=== PATIENT | female | born 1955 | race Caucasian/White ===

== ENCOUNTER → 2017-04-25 | Outpatient (CLI) | payer BC ==
[~2017-04-25] MED LIST: B-COCAP2 PO; CHOLTAB3 PO; COEN1CAP37 PO; FLUO40CA8 PO; MAGN400T6 PO; MULT-506 PO; OMEG120013 PO; SIMV20TA2 PO
--- NOTE | 2017-04-25 12:21 | DIAGNOSTIC IMAGING REPORT ---
EXAMINATION: RENAL ULTRASOUND CLINICAL HISTORY: ELEVATED PARATHYROID HORMONE E34.9 COMPARISON STUDY: None FINDINGS: The right kidney measures 9.1 cm. The left kidney measures 9.2 cm. There is no evidence of hydronephrosis. There are no renal masses. There is mild bilateral renal cortical thinning. There are no shadowing foci suspicious for calculi. No bladder abnormalities are visualized. Bilateral ureteral jets were visualized. IMPRESSION : No renal masses identified. No evidence of hydronephrosis. Electronically signed by: Theo Wyman M.D. 04/25/2017 12:20 PM Dictated Date/Time: 04/25/2017 12:19 PM
== END | disposition home or self-care (01) ==
LOC: C.ULTR 11:53
PROVIDERS: ATTEND Internal Medicine Endocrinology, Diabetes & Metabolism
DX: E34.9 Endocrine disorder, unspecified (principal)

== ENCOUNTER → 2017-05-01 | Outpatient (CLI) | payer BC ==
[2017-05-01 13:06] LABS: CALCIUM URINE < 5.0 mg/dl; URINE COLLECTION TIME 24 HOURS; URINE SODIUM 24 HR 80 mmol/24 (40-220)
== END | disposition home or self-care (01) ==
LOC: C.LABPBG 07:44
PROVIDERS: ATTEND Internal Medicine Endocrinology, Diabetes & Metabolism
DX: E34.9 Endocrine disorder, unspecified (principal)

== ENCOUNTER → 2017-05-09 | Outpatient (CLI) | payer BC ==
[2017-05-09 13:41] LABS: ALT/SGPT 31 U/L (12-78); AST/SGOT 19 U/L (15-37); BLOOD UREA NITROGEN 15 mg/dl (7-18); BUN/CREATININE RATIO 15.1 (10-20); CALCIUM 9.7 mg/dl (8.5-10.1); CARBON DIOXIDE 26 mmol/L (21-32); CHLORIDE 108 mmol/L (98-107); GLUCOSE 77 mg/dl (70-99); POTASSIUM 3.9 mmol/L (3.5-5.1); SODIUM 143 mmol/L (136-145)
[2017-05-09 13:43] LABS: ALB/GLOB RATIO 1.2 (0.9-2); ALKALINE PHOSPHATASE 76 U/L (45-117); PHOSPHORUS 1.8 mg/dl (2.5-4.9)
== END | disposition home or self-care (01) ==
LOC: C.LABPBG 07:13
PROVIDERS: ATTEND Internal Medicine Endocrinology, Diabetes & Metabolism
DX: E34.9 Endocrine disorder, unspecified (principal)

== ENCOUNTER → 2017-05-15 | Outpatient (CLI) | payer BC | END | disposition home or self-care (01) | LOC: C.MAMM 07:40 | PROVIDERS: ATTEND Internal Medicine Endocrinology, Diabetes & Metabolism | DX: E34.9 Endocrine disorder, unspecified (principal) ==

== ENCOUNTER → 2017-05-19 | Outpatient (CLI) | payer BC ==
[2017-05-19 12:29] LABS: BASO % 0.4 %; BASO ABS # 0.01 K/uL (0-0.2); COMPLETE YES; EOS % 3.3 %; HEMATOCRIT 40.6 % (37-47); LYMPH % 32.6 %; LYMPH ABS # 0.89 K/uL (1.2-3.4); MEAN CELL VOLUME 96.9 fL (80-100); MEAN CORPUSCULAR HEMOGLOBIN 32.9 pg (25-34); MEAN PLATELET VOLUME 10.2 fL (7.4-10.4); NEUT % 48.7 %; PLATELET COUNT 147 K/uL (130-400); RED BLOOD COUNT 4.19 M/uL (4.2-5.4); WHITE BLOOD COUNT 2.73 K/uL (4.8-10.8)
[2017-05-19 13:16] LABS: ALT/SGPT 44 U/L (12-78); BLOOD UREA NITROGEN 19 mg/dl (7-18); BUN/CREATININE RATIO 17.1 (10-20); CARBON DIOXIDE 26 mmol/L (21-32); CHLORIDE 107 mmol/L (98-107); GLUCOSE 104 mg/dl (70-99); POTASSIUM 3.8 mmol/L (3.5-5.1); SODIUM 142 mmol/L (136-145)
[2017-05-19 13:19] LABS: ALB/GLOB RATIO 1.2 (0.9-2); ALKALINE PHOSPHATASE 78 U/L (45-117); AST/SGOT 24 U/L (15-37)
== END | disposition home or self-care (01) ==
LOC: C.LABPBG 06:58
PROVIDERS: ATTEND Internal Medicine Hematology & Oncology
DX: C50.412 Malignant neoplasm of upper-outer quadrant of left female breast (principal)

== ENCOUNTER → 2017-05-29 | Outpatient (CLI) | payer BC ==
--- NOTE | 2017-05-31 12:33 | MAMMOGRAPHY REPORT ---
BILATERAL DIGITAL SCREENING MAMMOGRAM TOMOSYNTHESIS WITH CAD: 05/29/2017 CLINICAL HISTORY: Asymptomatic. Personal history of breast cancer. TECHNIQUE: Breast tomosynthesis in addition to standard 2D mammography was performed. Current study was also evaluated with a Computer Aided Detection (CAD) system. COMPARISON: Comparison is made to exams dated: 05/27/2016 mammogram, 11/10/2015 mammogram, 05/08/2015 m ammogram - [facility], 05/19/2014 mammogram, 04/28/2014 mammogram, and 04/27/2013 mammog leonid - [facility]. BREAST COMPOSITION: There are scattered areas of fibroglandular density in both breasts. FINDINGS: There are stable posttreatment changes in the left breast, with expected architectural dist ortion and a single surgical clip at the site of prior lumpectomy in the 9:00 axis. There are scatte red benign-appearing microcalcifications bilaterally. A stable circumscribed subcentimeter mass in t he right upper outer quadrant. No new suspicious mass, architectural distortion or cluster of microc alcifications is seen. IMPRESSION: ACR BI-RADS CATEGORY 1: NEGATIVE There is no mammographic evidence of malignancy. A 1 year screening mammogram is recommended. The pa tient will receive written notification of the results. Approximately 10% of breast cancers are not detected with mammography. A negative mammographic report should not delay biopsy if a clinically suggestive mass is present. Monica Riggins M.D. ay/:05/29/2017 16:12:41 Sports Coordinator: Cristel MATA(Penelope)(Fermín)([place]), [facility] letter sent: Normal 1/2 BI-RADS Code: ACR BI-RADS Category 1: Negative
== END | disposition home or self-care (01) ==
LOC: C.MAMM 15:15
PROVIDERS: ATTEND Internal Medicine Hematology & Oncology
DX: Z12.31 Encounter for screening mammogram for malignant neoplasm of breast (principal); Z85.3 Personal history of malignant neoplasm of breast

== ENCOUNTER → 2017-06-12 | Outpatient (CLI) | payer BC ==
--- NOTE | 2017-06-12 22:29 | DIAGNOSTIC IMAGING REPORT ---
NUCLEAR MEDICINE PARATHYROID SCAN CLINICAL HISTORY: Primary hyperparathyroidism. COMPARISON STUDY: No previous studies for comparison. TECHNIQUE: 22 mCi of technetium 99m Cardiolite was injected IV at 4:45 PM on June 12, 2017. Planar and SPECT imaging was performed 15 minutes and 3 hours following injection. FINDINGS: Expected radiotracer deposition is noted. There is no convincing evidence for a parathyroid adenoma. Early images show slight asymmetric radiotracer uptake projecting over the mid aspect of the right thyroid lobe. There is possible mild radiotracer retention on the delayed images. IMPRESSION: No convincing evidence for parathyroid adenoma. Slight asymmetric radiotracer uptake projecting over the right thyroid lobe with out definite radiotracer retention. A right superior parathyroid adenoma would be difficult to exclude. Electronically signed by: Kwame Leroy M.D. 06/12/2017 10:28 PM Dictated Date/Time: 06/12/2017 9:12 PM
== END | disposition home or self-care (01) ==
LOC: C.NUCL 16:15
PROVIDERS: ATTEND Internal Medicine Endocrinology, Diabetes & Metabolism
DX: E21.0 Primary hyperparathyroidism (principal)

== ENCOUNTER → 2017-10-25 | Outpatient (CLI) | payer BC ==
[2017-10-25 14:07] VITALS: BP 151/85; PULSE 72; TEMP 36.7; O2SAT 96
--- NOTE | 2017-10-25 14:43 | Radiation Oncology Follow-Up ---
Radiation Oncology Follow-Up Date of Visit Oct 25, 2017. Reason For Visit Annual follow-up Radiation Completion Date finished 03-16-2015 Diagnosis (1) Stage I breast cancer Status: Resolved Onset Date: 05/19/2014 Histology Subtype: ductal Stage: l Permanent Comment: Abnormal left breast mammogram Status post needle localization biopsy 05/19/2014 revealing invasive ductal carcinoma grade 3 Estrogen receptor negative, progesterone receptor negative, HER-2/jo negative Status post quadrantectomy and low level axillary dissection 06/18/2014 Pathologic stage [id number] Status post adjuvant chemotherapy with Taxol and carboplatin followed by Adriamycin and Cytoxan Status post completion of radiation therapy 03/16/2015 received 6120 cGy Last Edited By: Yenifer Rosen on April 21, 2015 09:49 History of Present Illness Ms. Cleary is without a family history of breast cancer who has been followed with screening mammograms. On 04/28/2014 she underwent her annual screening mammogram which revealed an interval development of an irregular density with associated pleomorphic microcalcifications located approximately 7-8 cm from the nipple. These were new findings not seen on the prior study from 2012. Additional studies were recommended. Patient went on to have a unilateral left breast ultrasound. This showed between the 9:00 and 10 o'clock position of the left breast located approximately 5 cm in the nipple a solid hypoechoic lesion with poorly defined lobulated margins and posterior acoustic shadowing was identified. This was felt to be highly suspicious of malignancy and a biopsy was recommended. On 05/19/2014 the patient underwent a needle localization biopsy of the left breast mass performed by Dr. Riggins. The specimen consisted of a stellate mass measuring 1.7 x 1.6 x 1.2 cm. This was diagnosed as an invasive ductal carcinoma grade 3 of 3. The lesion focally extended to the inked and cauterized margins. Estrogen receptor studies were ordered and were negative. Progesterone receptors were ordered and were negative. HER-2/jo was performed and was negative for overexpression. The patient was therefore a pathologic stage TIc grade 3 triple-negative lesion. Lab number [id number]. Staging workup was performed. A bone scan performed on May 28 showed no evidence of osseous metastatic disease. A CT scan of the chest, abdomen and pelvis showed no evidence of metastatic disease. A fibroid uterus was appreciated. On 06/18/2014 Dr. Riggins performed a quadrant resection of the left breast and a low-level left axillary dissection. The breast tissue showed no residual malignancy. 9 axillary nodes were identified and removed and all were negative. Patient was therefore a stage pT1c, pN0,Mx lab # [id number]. Patient has recovered well from her surgery. She apparently lives assisted between [facility] but preferred to come to the [place] area for adjuvant therapy She was seen by Dr. España. She then underwent chemotherapy. She received weekly Taxol along with every 3 week carboplatin. This was given over a 12 week time. She then received Adriamycin and Cytoxan. She has received 3 cycles. This was given in a dose dense regimen. The fourth cycle is to be given 01/05/2015. This cycle was delayed due to neutropenia. She has had treatment postponed on to other occasions due to neutropenia. She is also required two blood transfusions. She denies any problems with nausea and vomiting. With the first phase of treatment she did very well in regards to fatigue. With the second phase she has had fatigue towards the middle of the cycle that would then improve before receiving chemotherapy. She completed radiation therapy 03/16/2015. She received 6120 cGy. Interim History She has been doing well over this past year. She is noted no changes to her breast. She is noted no masses or tenderness no change of the axilla. She's had no swelling of her arm. She is up-to-date on mammography. She's been followed closely in medical oncology and has had a consistently elevated calcium. This was evaluated and she underwent a parathyroidectomy in August. Since the surgery the calcium is now at a normal level. Allergies Coded Allergies: No Known Allergies (Unverified , 01/29/16) Home Medications Scheduled Coenzyme Q10 (Ubidecarenone) (Co Q-10), 200 MG PO DAILY Ergocalciferol (Vitamin D), 400 INTER.UNIT PO DAILY Fluoxetine (Prozac), 40 MG PO DAILY Magnesium Oxide (Mag-Ox), 400 MG PO DAILY Multivitamin (Multivitamin), 1 TAB PO DAILY [place]-3 Fatty Acids (Fish Oil), 1 TAB PO BID Simvastatin (Zocor), 20 MG PO QPM Vitamin B Cmplx/Vitc/Folic Ac (Nephrocaps), 1 CAP PO DAILY Review of Systems Gastrointestinal: Symptoms: WNL Oral: Symptoms: No Problems Respiratory: Symptoms: WNL, Dry Cough Other Respiratory: occ dry cough Urinary: Symptoms: WNL Skin: Symptoms: No Problems Breast: Right Upper Arm Measurement: 27.7 Right Mid Arm Measurement: 23.0 Right Wrist Measurement: 15.0 Left Upper Arm Measurement: 27.0 Left Mid Arm Measurement: 22.5 Left Wrist Measurement: 14.8 Arm Dominence: Right Patient Cosmetic Evaluation: Excellent Staff Cosmetic Evalaluation: Excellent Physical Exam Vital Signs Date Time Temp Pulse Resp B/P (MAP) Pulse Ox O2 Delivery O2 Flow Rate FiO2 10/25/17 14:07 36.7 72 18 151/85 96 Fatigue: None General Appearance: no apparent distress Eyes: normal inspection ENT: normal ENT inspection, hearing grossly normal Neck: no adenopathy, + pertinent finding (well-healed incisions) Respiratory/Chest: lungs clear, no respiratory distress, no accessory muscle use Breast: Breast examination reveals well-healed incisions of the left breast. There are no masses or tenderness no axillary adenopathy. There is a noted deficit in the upper inner portion of the breast. There are no nipple changes. Using the [place] score cosmesis she has a good outcome. The right breast showed no masses or tenderness and no axillary adenopathy. Cardiovascular: regular rate, rhythm, no gallop, no murmur Extremities: no pedal edema Neurologic/Psychiatric: no motor/sensory deficits, alert, normal mood/affect Pain Management Side: Bilateral Patient Preferred Pain Scale: 0 - 10 Pain Rating (0-10): 0 Pain Management Plan She has no pain and requires no pain management. Additional Studies Patient: WILLIAM CLEARY [facility] Rec: [id number] Address1: [address] [place] [address] Address2: [facility] ID: [id number] Date: 1955 Sex: F Ref Phy: Steven Mae D.O. Att Phy: Steven Mae D.O. Monica Phy: Anders Young D.O. Inter Phy: Monica Riggins MD [facility] Zip: [place] [address] SC: [facility] Report #: [id number] Armature Straightener: GISELE Diagnosis: ASYMPTOMATIC Service Date: 05/29/17 MNE: [id number] Ordering Dr: Steven Mae D.O. CC: Steven Mae D.O. CONF: DICTATED BY: Monica Riggins MD MAMMOGRAPHY REPORT BILATERAL DIGITAL SCREENING MAMMOGRAM TOMOSYNTHESIS WITH CAD: 05/29/2017 CLINICAL HISTORY: Asymptomatic. Personal history of breast cancer. TECHNIQUE: Breast tomosynthesis in addition to standard 2D mammography was performed. Current study was also evaluated with a Computer Aided Detection (CAD ) system. COMPARISON: Comparison is made to exams dated: 05/27/2016 mammogram, 11/10/2015 mammogram, 05/08/2015 mammogram - [facility], 05/19/2014 mammogram, 04/28/2014 mammogram, and 04/27/2013 mammogram - [facility]. BREAST COMPOSITION: There are scattered areas of fibroglandular density in both breasts. FINDINGS: There are stable posttreatment changes in the left breast, with expected architectural distortion and a single surgical clip at the site of prior lumpectomy in the 9:00 axis. There are scattered benign-appearing microcalcifications bilaterally. A stable circumscribed subcentimeter mass in the right upper outer quadrant. No new suspicious mass, architectural distortion or cluster of microcalcifications is seen. IMPRESSION: ACR BI-RADS CATEGORY 1: NEGATIVE There is no mammographic evidence of malignancy. A 1 year screening mammogram is recommended. The patient will receive written notification of the results. Approximately 10% of breast cancers are not detected with mammography. A negative mammographic report should not delay biopsy if a clinically suggestive mass is present. Monica Riggins M.D. ay/:05/29/2017 16:12:41 Reimbursement Liaison: Cristel MATA(Penelope)(Fermín)(ROSA ELENA), [facility] letter sent: Normal 1/2 BI-RADS Code: ACR BI-RADS Category 1: Negative Dictated by: Monica Riggins MD Signed by: Monica Riggins MD Assessment & Plan Plan: Continue annual mammography. She has a mammogram scheduled for April. Continue regular follow-up with medical oncology. She hasn't appointment scheduled. We asked her to return to our office in 1 year. She may call if she has any questions or concerns in the interim. Total Time In Follow-Up I spent 20 minutes speaking to the patient and performing examination. I spent 15 minutes reviewing information and completing this note. Copy To Anders Young D.O.; Steven Mae D.O. Problem Qualifiers (1) Stage I breast cancer: Estrogen receptor status: negative Laterality: left Qualified Codes: C50.912 - Malignant neoplasm of unspecified site of left female breast; Z17.1 - Estrogen receptor negative status [ER-]
== END | disposition home or self-care (01) ==
LOC: C.ONC 13:52
PROVIDERS: ATTEND Physician Assistant Medical
DX: Z08 Encounter for follow-up examination after completed treatment for malignant neoplasm (principal); Z92.3 Personal history of irradiation; Z85.3 Personal history of malignant neoplasm of breast

== ENCOUNTER → 2017-12-05 | Outpatient (CLI) | payer BC ==
[2017-12-05 12:44] LABS: BASO % 0.3 %; BASO ABS # 0.01 K/uL (0-0.2); EOS % 4.6 %; EOS ABS # 0.16 K/uL (0-0.5); HEMATOCRIT 42.1 % (37-47); HEMOGLOBIN 14.4 g/dL (12.0-16.0); IG# 0.01 K/uL (0.00-0.02); LYMPH % 28.5 %; LYMPH ABS # 0.99 K/uL (1.2-3.4); MEAN CELL VOLUME 94.8 fL (80-100); MEAN CORPUSCULAR HEMOGLOBIN 32.4 pg (25-34); MEAN CORPUSCULAR HGB CONC 34.2 g/dl (32-36); MONO % 11.2 %; MONO ABS # 0.39 K/uL (0.11-0.59); NEUT % 55.1 %; NEUT ABS # 1.91 K/uL (1.4-6.5); PLATELET COUNT 166 K/uL (130-400); RED CELL DISTRIBUTION WIDTH CV 13.5 % (11.5-14.5); RED CELL DISTRIBUTION WIDTH SD 46.8 fL (36.4-46.3); WHITE BLOOD COUNT 3.47 K/uL (4.8-10.8)
[2017-12-05 13:48] LABS: ALBUMIN 3.5 gm/dl (3.4-5.0); ALT/SGPT 34 U/L (12-78); AST/SGOT 16 U/L (15-37); BLOOD UREA NITROGEN 23 mg/dl (7-18); CARBON DIOXIDE 29 mmol/L (21-32); CREATININE 0.91 mg/dl (0.60-1.20); GLUCOSE 79 mg/dl (70-99); POTASSIUM 3.8 mmol/L (3.5-5.1); SODIUM 137 mmol/L (136-145)
[2017-12-05 13:51] LABS: ALKALINE PHOSPHATASE 69 U/L (45-117)
== END | disposition home or self-care (01) ==
LOC: C.LABPBG 08:12
PROVIDERS: ATTEND Internal Medicine Hematology & Oncology
DX: C50.412 Malignant neoplasm of upper-outer quadrant of left female breast (principal)